=== PATIENT | male | born 1985 ===

== ENCOUNTER 2017-05-02 18:51 | Emergency (ER) | payer SELFPAY ==
[~2017-05-02] VITALS: Ht 180.3 cm; Wt 83.0 kg
[2017-05-02 18:53] VITALS: BP 142/85; PULSE 83; RESP 16; TEMP 98.8; O2SAT 98
[2017-05-02] MEDS ORDERED: PROPARACAINE HCL 0.5% OPHT SOLN 15 ML BTL EACH EYE ONE (19:30)
[2017-05-02] MEDS ORDERED: ERYTOIN10 RIGHT EYE (19:39)
[2017-05-02] MEDS ORDERED: TETANUS/DIPHTHERIA TOXOID ADULT 0.5 ML VIAL IM ONE (19:45)
--- NOTE | 2017-05-02 19:45 | PD ---
HPI Chief Complaint: Eye Problems/Injury Time Seen by Provider: 19:19 Travel History International Travel<30 days: No Contact w/Intl Traveler<30days: No Traveled to known affect area: No History of Present Illness HPI 31-year-old male presents to the emergency room for evaluation of right eye foreign body sensation for the past day. Patient states earlier today, he was grinding concrete with safety goggles on but some of the dirt got into his eye. He flushed it with water but had persistent pain. States he was doing okay until he began driving home and it suddenly worsened. He reports associated eye tearing. No drainage. Has some sensitivity to light. Denies changes in visual acuity. Unknown last tetanus. Chronic medical conditions or daily medications. He does not wear contacts. [facility] Past Medical History Medical History: Denies Significant Hx Diminished Hearing: No Immunizations Current: Yes Past Surgical History Appendectomy: Yes Social History Alcohol Use: No Tobacco Use: Yes (1/2 PPD) Substance Use: No Allergies-Medications (Allergen,Severity, Reaction): Coded Allergies: No Known Allergies (Unverified , 05/02/17) Review of Systems Except as stated in HPI: all other systems reviewed are Neg Physical Exam Narrative GENERAL: Well-nourished, well-developed male in no acute distress. Afebrile. Ambulatory. SKIN: Focused skin assessment warm/dry. HEAD: Normocephalic. EYES: PERRL, EOMI without pain. Mild to moderate injection of the right eye. No purulent drainage. Moderate tearing. No scleral icterus. Positive red light reflex. Fluorescein staining reveals a corneal abrasion at the 12 o' clock position of the right eye. Negative Galen sign. No foreign body appreciated. Eyelid eversion reveals a pinpoint foreign body on the upper lid. No significant photophobia on exam. Visual acuity is: left 20/40 right 20/30. NECK: Supple, trachea midline. No JVD or lymphadenopathy. CARDIOVASCULAR: Regular rate and rhythm without murmurs, gallops, or rubs. RESPIRATORY: Breath sounds equal bilaterally. No accessory muscle use. PSYCHIATRIC: No delusional thought processes. No hallucinations. Data Data Last Documented VS Vital Signs Date Time Temp Pulse Resp B/P (MAP) Pulse Ox O2 Delivery O2 Flow Rate FiO2 05/02/17 18:53 98.8 83 16 142/85 (104) 98 Room Air Orders Orders Proparacaine 0.5% Opth Soln (Alcaine 0.5 (05/02/17 19:30) [facility] Medical Decision Making Medical Screen Exam Complete: Yes Emergency Medical Condition: Yes Medical Record Reviewed: Yes Differential Diagnosis Corneal abrasion, ulceration, conjunctivitis Narrative Course 31-year-old male presents to the emergency room for evaluation of foreign body sensation to his right eye after grinding concrete earlier today. Physical exam reveals EOMI without pain. Mild to moderate injection of the right eye. No purulent drainage. Moderate tearing. Fluorescein staining reveals a corneal abrasion at the 12 o'clock position of the right eye. Negative Galen sign. No foreign body appreciated. Eyelid eversion reveals a pinpoint foreign body on the upper lid. No significant photophobia on exam. Visual acuity is: left 20/40, right 20/30. The patient point foreign body/dirt was removed from the eyelid and patient reported immediate improvement in symptoms. He will be discharged with prescription for erythromycin ointment and told to follow up with a primary care physician or return for worsening symptoms. He understands and agrees to plan. Diagnosis Primary Impression: Corneal abrasion Qualified Codes: S05.01XA - Injury of conjunctiva and corneal abrasion without foreign body, right eye, initial encounter Referrals: Primary Care Physician Additional Instructions: Apply ointment as directed for 3-5 days. Follow-up with an turning sander operator. Return to the emergency room for worsening symptoms. Scripts Erythromycin Opth Oint (Erythromycin Opth Oint) 5 Mg/Gm Oint 1 APPLIC RIGHT EYE QID for Infection, #1 TUBE 0 Refills Prov: Kate Do MD 05/02/17 Disposition: 01 DISCHARGE HOME Condition: Stable Nicole Rueda May 02, 2017 19:45
== END 2017-05-02 20:18 | disposition home or self-care (01) ==
LOC: NEPK 18:51
DX: S05.01XA Injury of conjunctiva and corneal abrasion without foreign body, right eye, initial encounter (principal); X58.XXXA Exposure to other specified factors, initial encounter; F17.210 Nicotine dependence, cigarettes, uncomplicated
CPT/HCPCS: 90471; 90714; 99283; 99284